=== PATIENT | female | born 1965 | race Caucasian/White ===

== ENCOUNTER 2019-03-07 23:29 | Emergency (ER) | payer OTHER ==
[~2019-03-07] VITALS: Ht 175.3 cm; Wt 90.7 kg
[2019-03-07 23:32] VITALS: Ht 175.3 cm; Wt 90.7 kg
[2019-03-08 00:09] VITALS: BP 150/95
== END 2019-03-08 00:09 | disposition other institution (70) ==
LOC: ED 23:29
DX: Z02.89 Encounter for other administrative examinations (principal)